=== PATIENT | male | born 1955 | race Caucasian/White ===

== ENCOUNTER 2019-01-03 12:39 | Inpatient (IN) | payer MEDICAID, OTHER ==
--- NOTE | 2019-01-03 12:45 | ED ---
HPI Chest Pain - HPI Summary HPI Summary: This pt is a 63 y/o male presenting to [facility] via EMS for chest pain and syncope today. Pt reports he was working at [employer] when he got thirsty and went to the bottle room to drink some water. He notes he sat down to drink water and the next thing he knows his boss is yelling in his face telling him he had passed out. EMS notes pt had a syncopal episode and was found by coworkers. EMS reports they were called to scene at about 12:20 and upon their arrival pt was talking and c/o chest pressure. Pt rated his chest pressure at onset 7/10 in severity. EMS denies pt with SOB or diaphoresis. EMS administered aspirin and nitroglycerin x2. Currently pt rates his chest pain 1/10. Pt notes he has cold, cough, runny nose, myalgia. Denies fever, chills, erythema of eyes , SOB, abd pain, nausea, vomiting, dysuria, hematuria, myalgia, edema, rash, or dizziness. PMHx includes triple bypass (done by Dr. Laird in [place], [place]) and 2 cardiac stents. His embedded linux developer is Dr. Gorman in [place]. Pt has not been taking his medications (which include Glipizide, aspirin, metformin) for 1 month now due to not having insurance. He had [employer] insurance in the past but will reestablish this insurance on February 06. - History of Current Complaint Time Seen by Provider: 01/03/19 12:40 Hx Obtained From: Patient, EMS Onset/Duration: Started Minutes Ago, Still Present Timing: Lasting Minutes Initial Severity: Moderate Current Severity: Mild Pain Intensity: 1 Pain Scale Used: 0-10 Numeric Chest Pain Location: Mid Sternal Chest Pain Radiates: No Character: Pressure/Squeezing - Pressure Aggravating Factor(s): Nothing Alleviating Factor(s): NTG 123 Associated Signs and Symptoms: Positive: Chest Pain, Syncope, Cough, Other: - POSITIVE: runny nose, myalgia.. Negative: Shortness of Breath, Fever, Chills, Nausea, Palpitations, Abdominal Pain, Vomiting, Edema - Allergy/Home Medications Allergies/Adverse Reactions: Allergies Allergy/AdvReac Type Severity Reaction Status Date / Time No Known Allergies Allergy Verified 01/03/19 12:45 Home Medications: Home Medications Alogliptin (NF) [Nesina (NF)] 25 mg PO DAILY 01/03/19 [History Confirmed ] Amlodipine Besylate [Amlodipine 2.5 mg tab] 2.5 mg PO DAILY 01/03/19 [History Confirmed 01/03/19] Aspirin EC TAB* [Ecotrin EC Low Dose 81 MG*] 81 mg PO DAILY 01/03/19 [History Confirmed 01/03/19] Atorvastatin* [Lipitor*] 80 mg PO DAILY 01/03/19 [History Confirmed 01/03/19] Clopidogrel TAB* [Plavix TAB*] 75 mg PO DAILY 01/03/19 [History Confirmed ] Linagliptin (NF) [Tradjenta (NF)] 5 mg PO DAILY 01/03/19 [History Confirmed ] Lisinopril TAB* [Prinivil TAB*] 5 mg PO DAILY 01/03/19 [History Confirmed ] Omeprazole (Nf) [Prilosec (NF)] 40 mg PO DAILY 01/03/19 [History Confirmed 01/03] glipiZIDE TAB* [Glucotrol TAB*] 10 mg PO DAILY 01/03/19 [History Confirmed 01/03] metFORMIN* [Glucophage 1000 MG TAB *] 1,000 mg PO BID 01/03/19 [History Confirmed 01/03/19] PMH/Surg Hx/FS Hx/Imm Hx Endocrine/Hematology History: Reports: Hx Diabetes Cardiovascular History: Reports: Hx Coronary Artery Disease, Hx Hypercholesterolemia, Hx Myocardial Infarction - Surgical History Surgical History: Yes Surgery Procedure, Year, and Place: Triple bypass. Cardiac stents - Family History Known Family History: Negative: Respiratory Disease - Social History Alcohol Use: Occasionally Substance Use Type: Reports: None Smoking Status (MU): Light Every Day Tobacco Smoker Review of Systems Negative: Fever, Chills Negative: Erythema Positive: Nasal Discharge. Negative: Sore Throat Positive: Chest Pain Positive: Cough. Negative: Shortness Of Breath Negative: Abdominal Pain, Vomiting, Nausea Negative: dysuria, hematuria Positive: Myalgia. Negative: Edema Negative: Rash Neurological: Other - NEGATIVE: dizziness Positive: Syncope All Other Systems Reviewed And Are Negative: Yes Procedures - Sedation Patient Received Moderate/Deep Sedation with Procedure: No Diagnostics - Laboratory Result Diagrams: 01/03/19 12:53 01/03/19 12:53 Lab Statement: Any lab studies that have been ordered have been reviewed, and results considered in the medical decision making process. - Radiology Chest XR Radiology Interpretation Completed By: Radiologist Summary of Radiographic Findings: IMPRESSION: No active cardiopulmonary disease is noted. Dr. Anderson has reviewed this report. - EKG 12:39 Cardiac Rate: NL - at 79 bpm EKG Rhythm: Sinus Rhythm Summary of EKG Findings: EKG at 12:39 shows normal sinus rhythm at [address] elevation in lead aVR 1mm. ST depressions in leads V4-V6. T wave inversions in V3-V6. No STEMI. 13:31 Cardiac Rate: Bradycardia - at 49 bpm EKG Rhythm: Sinus Bradycardia EKG Comparison: No Significant Change - compared to prior EKG at 12:39. Summary of EKG Findings: No STEMI. No changes. Re-Evaluation - Re-Evaluation First Eval Re-Evaluation Time: 13:57 Change: Improved Comment: Pt is chest pain free. Chest Pain Course/Dx - Course Assessment/Plan: Pt is a 63 y/o male, with hx triple bypass and cardiac stents, presenting to [facility] via EMS for chest pain and syncope today. Pt reports he was working at [employer] when he got thirsty and went to the bottle room to drink some water. He notes he sat down to drink water and the next thing he knows his boss is yelling in his face telling him he had passed out. EMS notes pt had a syncopal episode and was found by coworkers. EMS reports they were called to scene at about 12:20 and upon their arrival pt was talking and c/o chest pressure. Pt rated his chest pressure at onset 7/10 in severity. EMS denies pt with SOB or diaphoresis. EMS administered aspirin and nitroglycerin x2. Currently pt rates his chest pain 1/10. Pt notes he has cold, cough, runny nose, myalgia. EKG at 12:39 shows normal sinus rhythm at [address] elevation in lead aVR 1mm. ST depressions in leads V4-V6. T wave inversions in V3-V6. No STEMI. A second EKG shows sinus bradycardia with no changes compared to prior. Lab results are remarkable for hemoglobin of 13.4, hematocrit of 40, creatinine of 1.21, glucose of 597, lactic acid of 2.3, troponin of 0.16. Chest XR is negative. In the ED course the pt was given IV fluids, insulin. Discussed pt care with Dr. Pan, embedded linux developer, who recommends a heparin drip and admission. Discussed with Dr. Delaney, hospitalist, who accepted the pt for admission. - Diagnoses Provider Diagnoses: NSTEMI (non-ST elevated myocardial infarction), Syncope - Provider Notifications Discussed Care Of Patient With: Jewel Pan Time Discussed With Above Provider: 14:11 Instructed by Provider To: Other - Discussed pt care with Dr. Pan, embedded linux developer, who recommends a heparin drip and admission. [14:14] Discussed with Dr. Delaney, hospitalist, who accepted the pt for admission. - Critical Care Time Critical Care Time: 30-74 min - 60 minutes Discharge ED - Sign-Out/Discharge Documenting (check all that apply): Patient Departure - Admit to [facility] [place] [place] - Discharge Plan Condition: Stable Disposition: ADMITTED TO [facility] Referrals: Rita Ring NP [Primary Care Provider] - - Attestation Statements Document Initiated by Scribe: Yes Documenting Scribe: Noy William Provider For Whom Scribe is Documenting (Include Credential): Aleks Anderson MD Scribe Attestation: Noy Reed, scribed for Aleks Anderson MD on 01/03/19 at 1508. Status of Scribe Document: Ready
[2019-01-03 12:59] LABS: ABS Eosinophils 0.1 10^3/ul (0-0.6); ABS Monocytes 0.5 10^3/ul (0-0.8); ABS Neutrophils 3.9 10^3/ul (1.5-7.7); Eosinophil % 0.9 %; Hematocrit 40 % (42-52); Hemoglobin 13.4 g/dL (14.0-18.0); Lymphocyte % 18.4 %; Mean Corpuscular HGB Conc 34 g/dL (31-36); Mean Corpuscular Hemoglobin 29 pg (27-31); Mean Corpuscular Volume 85 fL (80-94); Mean Platelet Volume 8.9 fL (7.4-10.4); Platelet Count 209 10^3/uL (150-450); Red Blood Count 4.64 10^6 /uL (4.18-5.48); Red Cell Distribution Width 14 % (10-15); White Blood Count 5.4 10^3/uL (3.5-10.8)
[2019-01-03 13:46] LABS: ALT 10 U/L (7-52); AST 10 U/L (13-39); Albumin 3.6 g/dL (3.2-5.2); Albumin/Globulin Ratio 1.4 (1-3); Alkaline Phosphatase 114 U/L (34-104); Anion Gap 7 mmol/L (2-11); BUN/Creatinine Ratio 10.7 (8-20); Blood Urea Nitrogen 13 mg/dL (6-24); CO2 Carbon Dioxide 26 mmol/L (22-32); Calcium 8.6 mg/dL (8.6-10.3); Chloride 104 mmol/L (101-111); EGFR African American 73.8 (>60); Globulin 2.5 g/dL (2-4); Sodium 137 mmol/L (135-145); Total Protein 6.1 g/dL (6.4-8.9)
[2019-01-03 13:51] LABS: Glucose 597 mg/dL (70-100); Troponin I 0.16 ng/mL (<0.04)
[2019-01-03] MEDS ORDERED: Insulin REGULAR(*) 1 UNITS UNIT SUBCUT ONE (13:51)
[2019-01-03] MEDS ORDERED: NS 0.9% 1000 ML** 1,000 ML IV ONE ×2 (13:51→14:39)
[2019-01-03] MEDS ORDERED: Heparin DRIP 25,000 UNITS(*) 25,000 UNITS/500 ML BAG IV SCH (14:15)
[2019-01-03] MEDS ORDERED: Dextrose 50% VIAL 50 ml IV PUSH PRN ×3 (14:26→17:10)
[2019-01-03] MEDS: Heparin VIAL(*) 5000 UNITS/ML VIAL (FIVE THOUSAND) IV SCH (14:41)
[2019-01-03] MEDS ORDERED: Temazepam CAP* 15 MG PO PRN (14:42)
[2019-01-03] MEDS ORDERED: Al Hydrox/Mg Hydrox/Simet LIQ* 30 ML UDC PO PRN (14:42)
[2019-01-03] MEDS ORDERED: Insulin LISPRO* 1 UNITS UNIT SUBCUT SCH ×2 (15:00→20:00)
[2019-01-03] MEDS ORDERED: Perflutren Lipid Microsphere* 3 ML VIAL ONE (15:20)
[2019-01-03] MEDS ORDERED: Insulin LISPRO* 1 UNITS UNIT SUBCUT ONE (15:22)
[2019-01-03] MEDS ORDERED: Insulin GLARGINE(*) 1 UNITS UNIT SUBCUT ONE (15:22)
[2019-01-03] MEDS: NS 0.9% 1000 ML** 1,000 ML IV SCH (15:51)
--- NOTE | 2019-01-03 16:26 | ECHO ---
*[facility]* [place] [address] Fax #: [phone] Transthoracic Echocardiogram Patient: Gomez Nicole : 1955 Study Date: 01/03/2019 Age: 63 Gender: M HR: 62 bpm Height: 69 in /175.3 cm BSA: 2.15 m^2 Weight: 219.5 lb /99.8 kg BMI: 32.5 kg/m^2 *Methods And Procedures Analyst: Comfort Ballesteros [facility] *Referring Physician: * Ceci Delaney *Reading Physician: * Jewel Pan MD Indications: Myocardial Infarction (new). History: Coronary artery disease. Risk factors: Current tobacco use. Diabetes mellitus. Dyslipidemia. Labs, prior tests, procedures, and surgery: Catheterization. There was a stenosis which was treated with a stent. Coronary artery bypass grafting. Conclusions Summary: - Left ventricle: Systolic function is mildly reduced. The estimated ejection fraction is 35-40%. Hypokinesis of the apical myocardium. Hypokinesis of the mid-apicalanteroseptal myocardium. - Right ventricle: Systolic function is normal. - Mitral valve: There is trace regurgitation. - Aortic valve: There is no evidence of stenosis. There is no significant regurgitation. - Pericardium, extracardiac: There is no significant pericardial effusion. - Pulmonary arteries: Systolic pressure can not be accurately estimated. - Study data: No prior study is available for comparison. Study data: Transthoracic echocardiogram. Procedure: Transthoracic echocardiography was performed. Image quality was adequate. Intravenous Definity , 2 mlswas administered. Complete 2D, spectral Doppler, and color flow Doppler. Location: Emergency department. Patient status: Inpatient. Patient room number: 14. No prior study is available for comparison. Rhythm: Normal sinus rhythm with PAC's. Findings Left ventricle: The cavity size is mildly dilated. Wall thickness is mildly increased. Systolic function is mildly reduced. The estimated ejection fraction is 35-40%. Regional wall motion abnormalities: Hypokinesis of the apical myocardium. Hypokinesis of the mid-apicalanteroseptal myocardium. Features are consistent with a pseudonormal left ventricular filling pattern, with concomitant abnormal relaxation and increased filling pressure (grade 2 diastolic dysfunction). Right ventricle: The cavity size is normal. Systolic function is normal. Left atrium: The atrium is mildly dilated. Right atrium: The atrium is mildly dilated. Mitral valve: The leaflets are normal thickness. There is no evidence of stenosis. There is trace regurgitation. Aortic valve: The valve is trileaflet. The leaflets are mildly thickened. There is no evidence of stenosis. There is no significant regurgitation. Tricuspid valve: The leaflets are normal thickness. There is no evidence of stenosis. There is trace regurgitation. Pulmonic valve: The leaflets are normal thickness. There is no evidence of stenosis. There is trace to mild regurgitation. Aorta: Aortic root: The aortic root is upper normal in size. The aortic arch appears normal. Pericardium: There is no significant pericardial effusion. Pulmonary arteries: Not well visualized. Systolic pressure can not be accurately estimated. Systemic veins: Inferior vena cava: The vessel is dilated. There is (>= 50%) respiratory change in the IVC dimension. Measurements Left ventricle Value Ref Aortic valve continued Value Ref FABIENNE, LAX (H) 5.9 cm 4.2 - 5.8 VTI, S 32.7 cm ---- ESD, LAX (H) 4.3 cm 2.5 - 4.0 Mean grad, S 4.0 mm Hg ---- FS, LAX 27 % 25 - 43 Peak grad, S 7.0 mm Hg ---- PW, ED, LAX 1.0 cm 0.6 - 1.0 EF (L) 51 % 52 - 72 Mitral valve Value Ref E', lat jose, TDI (L) 5.5 cm/sec >=10.0 Peak E 1.1 m/sec -- -- E/e', lat jose, 20 Peak A 0.77 m/sec ---- TDI Decel time 150 ms ---- E', med jose, TDI (L) 5.6 cm/sec >=7.0 PHT 103 ms -- -- E/e', med jose, 20 Mean grad, D 1.0 mm Hg ---- TDI Peak grad, D 4.0 mm Hg ---- E', avg, TDI 5.6 cm/sec Peak E/A ratio 1.4 ---- E/e', avg, TDI (H) 20 <=14 MVA, PHT 2.1 cm^2 -- -- LVOT Value Ref Pulmonic valve Value Ref Peak jose juan, S 0.95 m/sec Peak v, S 0.51 m/sec ---- Mean grad, S 2 mm Hg Peak grad, S 1.0 mm Hg ---- Ventricular septum Value Ref Aortic root Value Ref IVS, ED (H) 1.1 cm 0.6 - 1.0 Root diam 3.5 cm <4.3 Right ventricle Value Ref Aortic arch Value Ref FABIENNE, LAX 3.6 cm Arch diam 3.1 cm ---- Left atrium Value Ref Decending aorta Value Ref AP dim, ES (H) 5.00 cm 3.00 - Bradly peak jose juan 0.65 m/sec ---- 4.00 ML dim, A4C 4.1 cm Inferior vena cava Value Ref SI dim, A4C 5.7 cm Diam 2.2 cm ---- Vol/bsa, ES, A/L (H) 36 ml/m^2 16 - 34 Pulmonary veins Value Ref Right atrium Value Ref Peak v, S 0.56 m/sec ---- SI dim, ES (H) 5.7 cm 3.4 - 5.3 Peak v, D 0.68 m/sec ---- ML dim, ES, A4C 3.7 cm 2.6 - 4.4 Peak S/D ratio 0.8 ---- Estimated RAP 8 mm Hg A rev duration 172 ms ---- Aortic valve Value Ref Jose diam, ED 2.3 cm Peak v, S 1.34 m/sec Legend: (L) and (H) litzy values outside specified reference range. Prepared and electronically signed by Jewel Pan MD 01/03/2019 16:26
[2019-01-03 16:48] LABS: Troponin I 0.65 ng/mL (<0.04)
[2019-01-03 17:07] LABS: Glucose 244 mg/dL (70-100)
--- NOTE | 2019-01-03 18:08 | CONS ---
CARDIOLOGY CONSULTATION: DATE OF CONSULT: 01/03/19 INDICATION FOR CONSULTATION: NSTEMI, coronary artery disease. HISTORY OF PRESENT ILLNESS: The patient is a 63-year-old gentleman with a history of known coronary artery disease, diabetes, hypertension, who was working at [employer] today. 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 The patient states that his boss was standing over him. It was reported to the patient at he was unresponsive for a couple of minutes. The patient states when he awoke, he did feel pressu re on his chest. He rated the pressure as 5/10. The patient denies any history of the discomfort in the recent past. The patient states when he got into the ambulance, his pressure had started to decrease and then when he arrived to the emergency room, his chest pressure had almost completely resolved. The patient cu rrently denies any chest discomfort. Past cardiac history, he had coronary bypass surgery x3 in the distant past. He also reports having 2 stents. I do not have any other documentation of that. The patient does take aspirin and Plavix on a daily basis. He does have a history of diabetes, but h as not been taking his diabetes medications of late because of financial constraints. PAST MEDICAL HISTORY: Significant for: 1. Diabetes. 2. Hypertension. 3. Coronary artery disease as described above. MEDICATIONS: Outpatient medications: 1. Glipizide XL 10 mg. 2. Metformin 1000 mg b.i.d. 3. Aspirin 81 mg a day. 4. Plavix 75 mg a day. 5. Omeprazole 40 mg a day. 6. Lisinopril 5 mg a day. 7. Amlodipine 2.5 mg a day. 8. Atorvastatin 80 mg a day. 9. Tradjenta 5 mg a day. 10. Alogliptin 25 mg a day. ALLERGIES: No known drug allergies. SOCIAL HISTORY: He is not . He denies tobacco use. He works at [employer]. FAMILY HISTORY: Positive for coronary artery disease. Father had a history of coronary artery disea se, at the age of 78. REVIEW OF SYSTEMS: Negative for fevers and chills. Negative for changes in bowel or bladder habits. Negative for change in weight. Other 12-point review is unremarkable except for his high sugars be cause of not taking diabetic medications. PHYSICAL EXAMINATION: Height is 5 feet 9 inches, weight 220 pounds. Temperature 97.6, heart rate is 66, blood pressure 131/81, respiratory rate is 18, oxygen saturation 97% on 2 L. Sclerae anicteric. Oropharynx is pink without erythema. Carotids are 2+ without bruits. JVD is normal. Thyroid is no rmal. Cardiac Exam: S1, S2 without any murmurs, rubs, or gallops. PMI is normal. Lungs are clear t o auscultation bilaterally. There is no dullness to percussion. Abdomen is soft, nontender, nondist ended with normoactive bowel sounds. Extremities show no edema. He has diminished pulses in dorsalis pedis. Normal pulses at his popliteal and femoral. The patient is awake and alert and oriented. H e moves all 4 extremities equally. LABORATORY DATA: CBC within normal limits. Chemistries within normal limits. BUN 13, creatinine 1. 2. Glucose is 600. AST and ALT are normal. Troponin level of 0.16. His EKG from 10/20/18 at his pneumatic drum sander's office showed normal sinus rhythm with nonspecific T wave abnormalities. His T waves are upright in V4, V5, and V6. His initial EKG here at [facility] shows normal sinus rhythm with deep T wave inversions in V4, V5, and V6 with [address] segment de pression. Again, the patient is currently pain-free. IMPRESSION: This is a 63-year-old gentleman with a history of known coronary artery disease who is a dmitted to the emergency room after having a syncopal episode while at work at [employer]. He also has had chest pressure. The patient does have positive troponin and positive EKG changes. Currently, the patient is pain-dariel e. At this point, my recommendation is continue medical therapy. The patient will be started on nitrogl ycerin drip and heparin drip. Aspirin and Plavix will be continued. The patient will hold on beta-b locker as he is somewhat bradycardic. The patient will likely need to undergo cardiac catheterization tomorrow, but we will see what his bl ood sugars do and see if he has any return of his chest pain. This case was discussed with Dr. Delaney. [id number]/[facility] #: [id number]
[2019-01-03 18:46] LABS: Troponin I 2.18 ng/mL (<0.04)
--- NOTE | 2019-01-03 20:43 | HP ---
CC: Dr. Pan, Cardiology; Rita Ring NP; building specialist, Dr. Gorman * HISTORY AND PHYSICAL: DATE OF ADMISSION: 01/03/19 PRIMARY CARE PROVIDER: Rita Ring NP, [place]. QUALITY SYSTEMS TECHNICIAN: Dr. Gorman, [place], [place]. CHIEF COMPLAINT: Chest pain and altered mental status. HISTORY OF PRESENT ILLNESS: Gomez Nicole is a 63-year-old male with history of coronary artery disease, diabetes, hyperlipidemia, hypertension, who was not able to take his medications for the past month due to his insurance lapsing. The patient stated that he was planning to reinstate his insurance with his new employer in February of this year, due to that he has not taken any of his medications for entire month. 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 He decided to go back inside to take a glass of water, at this point one of his coworkers noted that he was " out of source" and called his boss who looked him and as per the patient, his boss stated that for about 5 minutes he was not answering questions but standing up "in a daze." The patient himself stated that before that episode happened he felt so much short of breath but denied any chest pain. After he started talking again, he complained of belt-like chest pain localized in bilateral sides of his lower chest. The pain was mild at 4/10. He received nitroglycerin sublingually in the ambulance on the way to [facility] during which time his discomfort and shortness of breath resolved. The patient denies any recent problems with chest pain or shortness of breath apart from today. He stated that he frequently would get lightheaded. He denies frequent urination or blurry vision. On arrival, the patient was noted to have EKG changes with positive troponin and his sugars were above 500. He was seen by Dr. Pan from Cardiology. The patient currently is chest pain free. He is going to be admitted to intensive care unit with diagnosis of [id number] [place]. PAST MEDICAL HISTORY: 1. Coronary artery disease, status post coronary bypass graft in 2006 in [place], [place], status post 2 stents in [facility] in [place], the last one was in 2013 by the patient's building specialist, Dr. Gorman. 2. History of diabetes type 2. 3. Hypertension. 4. Dyslipidemia. 5. Gastroesophageal reflux disease. MEDICATIONS: Medications at home are none for the past 1 month but prior to that, the patient was on: 1. Tradjenta 5 mg daily. 2. Atorvastatin 80 mg daily. 3. Amlodipine 2.5 mg daily. 4. Lisinopril 5 mg daily. 5. Plavix 75 mg daily. 6. Metformin 1000 mg b.i.d. 7. Omeprazole 40 mg b.i.d. 8. Glipizide 10 mg daily. 9. Aspirin 81 mg daily. 10. Alogliptin 25 mg daily. ALLERGIES: No known drug allergies. SOCIAL HISTORY: The patient smokes 1 pack of cigarettes in a week. He started smoking when he was 17. He denies any drug use. He drinks alcohol rarely. He lives with his son, but his surrogate decision making person is his niece, Lisandra Mejia, with phone number of [phone]. REVIEW OF SYSTEMS: Please see history of present illness. All the remaining 12 systems were reviewed with the patient and were otherwise negative. PHYSICAL EXAMINATION GENERAL: The patient is a pleasant 63-year-old male who is in no acute distress. Alert, awake, and oriented x3. VITAL SIGNS: Blood pressure of 140/70, heart rate of 50 and regular, respiratory rate 20, oxygen saturation 99% on room air, temperature of 96.9. HEENT: Head: Atraumatic and normocephalic. Eyes: Pupils are equal and reactive to light and accommodation. Oropharynx clear. Mucosa moist. NECK: Supple. No JVD. No bruits bilaterally. RESPIRATORY: Clear to auscultation bilaterally. CARDIOVASCULAR: Regular rate and rhythm. No murmur. ABDOMEN: Soft and nontender. Bowel sounds are present in all 4 quadrants. EXTREMITIES: There is no edema. Pulses are +2 bilaterally. No clubbing or cyanosis. NEURO EVALUATION: Speech clear. Cranial nerves II through XII grossly intact. Motor strength is 5/5 bilaterally. DIAGNOSTIC STUDIES/LAB DATA: White blood cell count 5.4, hemoglobin 13.4, hematocrit 40, and platelets 209. Sodium 137, potassium 4.0, chloride 104, carbon dioxide 26, BUN 13, creatinine 1.21. Liver function test showed alkaline phosphatase of 114, AST of 10, ALT of 10. The patient's lactic acid was 2.3, glucose of 597, troponin of 0.16. Portable chest x-ray, impression: No active cardiopulmonary disease is noted. Clear on auscultation. The patient EKG showed normal sinus rhythm with a heart rate of 49 beats per minute with deep negative T-wave inversion in V2, V3, V4, V5, and V6 with ST depressions in leads V4 to V6 and the ST depression is new comparing with prior EKG obtained on the patient and T depressions are more pronounced than before. The patient also has ST elevation in lead III of [address] changes in lead II and aVF with negative T waves in the inferior leads also. ASSESSMENT AND PLAN: 1. The patient appears to have had [id number] myocardial infarction. I suspect his uncontrolled diabetes that is caused by him not able to afford his medications exacerbated his chronic heart condition. The patient is going to be restarted on aspirin and Plavix. He was already seen Dr. Pan in consultation and transthoracic echocardiogram is pending. Heparin drip is going to be instituted and the patient is going to be placed n.p.o. for the morning for likely cardiac catheterization. 2. History of dyslipidemia. His atorvastatin is going is going to be restarted and we will check lipid profile in the morning. 3. Uncontrolled diabetes. The patient is going to be placed on insulin sliding scale and insulin Lantus. We will check hemoglobin A1c. His uncontrolled diabetes is now due to medical noncompliance. 4. For DVT prophylaxis, the patient is going to be placed on heparin drip. 5. The patient's code status is full. His surrogate is his niece, Lisandra. TIME SPENT: Approximately 65 minutes was spent on admission of this patient, more than half the time was spent [id number] with the patient during the interview and physical exam. [id number]/[facility] #: [id number] PATRICK
[2019-01-03] MEDS: Insulin LISPRO* 1 UNITS UNIT SUBCUT SCH (20:48)
[2019-01-03] MEDS: Docusate CAP* 100 MG PO SCH (20:48)
[2019-01-04] MEDS: NS 0.9% 1000 ML** 1,000 ML IV SCH (02:05)
[2019-01-04] MEDS: Heparin VIAL(*) 5000 UNITS/ML VIAL (FIVE THOUSAND) IV SCH (02:51)
[2019-01-04 05:57] LABS: ABS Basophils 0.1 10^3/ul (0-0.2); ABS Eosinophils 0.1 10^3/ul (0-0.6); ABS Lymphocytes 2.5 10^3/ul (1.0-4.8); ABS Monocytes 0.6 10^3/ul (0-0.8); ABS Neutrophils 5.5 10^3/ul (1.5-7.7); Eosinophil % 0.9 %; Hematocrit 39 % (42-52); Hemoglobin 12.8 g/dL (14.0-18.0); Lymphocyte % 28.5 %; Mean Corpuscular HGB Conc 33 g/dL (31-36); Mean Corpuscular Hemoglobin 28 pg (27-31); Mean Corpuscular Volume 85 fL (80-94); Mean Platelet Volume 9.2 fL (7.4-10.4); Nucleated Red Blood Cells % 0.1; Platelet Count 171 10^3/uL (150-450); Red Blood Count 4.56 10^6 /uL (4.18-5.48); Red Cell Distribution Width 14 % (10-15); White Blood Count 8.7 10^3/uL (3.5-10.8)
[2019-01-04 06:12] LABS: BUN/Creatinine Ratio 10.3 (8-20); Blood Urea Nitrogen 10 mg/dL (6-24); CO2 Carbon Dioxide 24 mmol/L (22-32); Calcium 7.9 mg/dL (8.6-10.3); Cholesterol 129 mg/dL; EGFR African American 95.2 (>60); EGFR Non-African American 78.7 (>60); Glucose 138 mg/dL (70-100); HDL Cholesterol 24.1 mg/dL; LDL Cholesterol 69 mg/dL; Sodium 141 mmol/L (135-145); Triglycerides 179 mg/dL
[2019-01-04 06:16] LABS: Anion Gap 5 mmol/L (2-11); Chloride 112 mmol/L (101-111); Troponin I 4.25 ng/mL (<0.04)
--- NOTE | 2019-01-04 07:22 | PN ---
Subjective Date of Service: 01/04/19 Interval History: EKG this morning shows persistent deep t-wave inversions across the precordium as well as shallow t-wave inversions II, III, avf. He feels fine this morning. He had an uneventful night. No tele events. No recurrent chest pain or shortness of breath. Objective Active Medications: Al Hydrox/Mg Hydrox/Simethicone (Maalox Plus*) 30 ml PO Q6H PRN PRN Reason: INDIGESTION Aspirin (Aspirin Ec Tab*) 81 mg PO DAILY [facility] Atorvastatin Calcium (Lipitor*) 80 mg PO DAILY [facility] Clopidogrel Bisulfate (Plavix Tab*) 75 mg PO DAILY [facility] Dextrose (Dextrose 50% Vial 50 Ml*) 25 ml IV PUSH .FOR FS < 60 - SS PRN PRN Reason: FS < 60 Docusate Sodium (Colace Cap*) 100 mg PO BID [facility] Last Admin: 01/03/19 20:48 Dose: 100 mg Heparin Sodium (Porcine) (Heparin Vial(*)) 0 units IV .PER PROTOCOL [facility] Last Admin: 01/04/19 02:51 Dose: 2,000 units Heparin Sodium/Dextrose (Heparin Drip 25,000 Units(*)) 25,000 units in 500 mls @ 0 mls/hr IV PER RATE [facility]; Protocol Last Admin: 01/03/19 14:41 Dose: 20 mls/hr Sodium Chloride (Ns 0.9% 1000 Ml) 1,000 mls @ 100 mls/hr IV PER RATE [facility] Last Admin: 01/04/19 02:05 Dose: 100 mls/hr Influenza Virus Vaccine (Fluarix Quad [id number] Syr) 0.5 ml IM .ONCE ONE Stop: 01/04/19 09:01 Insulin Human Lispro (Humalog*) 0 units SUBCUT ACHS [facility]; Protocol Last Admin: 01/03/19 20:48 Dose: Not Given Lisinopril (Prinivil Tab*) 5 mg PO DAILY [facility] Pantoprazole Sodium (Protonix Tab*) 40 mg PO DAILY [facility] Temazepam (Restoril Cap*) 15 mg PO BEDTIME PRN PRN Reason: INSOMNIA Vital Signs - 8 hr 01/04/19 01/04/19 01/04/19 00:00 00:30 01:00 Temperature 96.8 F Pulse Rate 54 50 Respiratory 16 15 16 Rate Blood Pressure 132/64 (mmHg) O2 Sat by Pulse 97 95 Oximetry 01/04/19 01/04/19 01/04/19 01:01 02:00 03:00 Temperature Pulse Rate 53 49 Respiratory 16 22 20 Rate Blood Pressure 116/60 131/51 (mmHg) O2 Sat by Pulse 96 95 Oximetry 01/04/19 01/04/19 01/04/19 03:01 04:00 04:23 Temperature 99.2 F Pulse Rate 49 48 51 Respiratory 20 7 18 Rate Blood Pressure 116/50 106/56 (mmHg) O2 Sat by Pulse 95 94 96 Oximetry 01/04/19 01/04/19 01/04/19 05:00 05:01 06:00 Temperature Pulse Rate 54 Respiratory 19 15 13 Rate Blood Pressure 118/42 (mmHg) O2 Sat by Pulse 93 Oximetry 01/04/19 06:01 Temperature Pulse Rate 53 Respiratory 20 Rate Blood Pressure 126/61 (mmHg) O2 Sat by Pulse 91 Oximetry Oxygen Devices in Use Now: None Appearance: alert, resting comfortably in bed Eyes: No Scleral Icterus Ears/Nose/Mouth/Throat: NL Teeth, Lips, Gums Neck: NL Appearance and Movements; NL JVP Respiratory: Symmetrical Chest Expansion and Respiratory Effort Cardiovascular: NL Sounds; No Murmurs; No JVD, RRR Abdominal: NL Sounds; No Tenderness; No Distention Lymphatic: No Cervical Adenopathy Extremities: No Edema, - - hyperpigmented skin changes on shins and ankles Neurological: Alert and Oriented x 3 Result Diagrams: 01/04/19 05:40 01/04/19 05:40 Microbiology and Other Data: Microbiology 01/03/19 16:00 Nasal Screen MRSA (PCR) - Final Nasal Mrsa Not Detected Assess/Plan/Problems-Billing Assessment: 63 year old man with history of DM, HTN, and CAD who ran out of medications one month ago due to insurance lapse, presented on 01/03/19 with shortness of breath , chest pain, and his coworkers noted he was "out of source" and was found to have an NSTEMI. There was some question of syncope but he reports that he had been sitting and his boss was snapping in his face and he was not responding. - Patient Problems (1) NSTEMI (non-ST elevated myocardial infarction) Current Visit: Yes Status: Acute Code(s): I21.4 - NON-ST ELEVATION (NSTEMI) MYOCARDIAL INFARCTION SNOMED Code(s): 98750812 Comment: troponin still uptrending chest pain- free on heparin drip, asa/plavix, statin--no beta sebastián due to bradycardia plan for [facility] today (2) Acute systolic heart failure Current Visit: Yes Status: Acute Code(s): I50.21 - ACUTE SYSTOLIC ( CONGESTIVE) HEART FAILURE SNOMED Code(s): 968921053 Comment: with regional wall motion abnormalities like ischemic and related to acute event yesterday--he does not report recent change in exercise tolerance, weight, etc. continue melisa; would benefit from a beta sebastián but limited by bradycardia (3) Diabetes mellitus Current Visit: Yes Status: Acute Code(s): E11.9 - TYPE 2 DIABETES MELLITUS WITHOUT COMPLICATIONS SNOMED Code(s): 81012510 Comment: he had run out of medications a month ago and presented with bg > 500 yesterday add on a1c today currently only on sliding scale with fasting sugar at goal this morning, though I suspect may need some basal insulin; will follow today Status and Disposition: ICU level of care is appropriate at this time
[2019-01-04] MEDS ORDERED: diPHENhydraMINE PO* 25 MG PO PRN (08:23)
[2019-01-04] MEDS ORDERED: Diazepam TAB(*) 5 MG PO PRN (08:23)
[2019-01-04 08:28] LABS: Glucose 157 mg/dL (70-100); Potassium 3.8 mmol/L (3.5-5.0)
[2019-01-04 08:36] LABS: Troponin I 4.44 ng/mL (<0.04)
[2019-01-04] MEDS ORDERED: Influenza VAC *QUAD* 2019-20* 0.5 ML SYRINGE IM ONE (09:00)
[2019-01-04] MEDS: Insulin LISPRO* 1 UNITS UNIT SUBCUT SCH ×4 (09:04→21:00)
[2019-01-04] MEDS: Pantoprazole TAB * 40 MG TAB PO SCH (09:05)
[2019-01-04] MEDS: Lisinopril TAB* 5 MG PO SCH (09:05)
[2019-01-04] MEDS: Clopidogrel TAB* 75 MG PO SCH (09:05)
[2019-01-04] MEDS: Docusate CAP* 100 MG PO SCH ×2 (09:05→21:00)
[2019-01-04] MEDS: Aspirin EC TAB* 81 MG TAB.EC PO SCH (09:05)
[2019-01-04] MEDS: Atorvastatin* 80 MG TAB PO SCH (09:05)
[2019-01-04] MEDS ORDERED: Heparin 2 UNITS/ML IVPREMIX* 2,000 ML IV ONE (09:07)
[2019-01-04] MEDS ORDERED: Iohexol 350 (CONTRAST) 200 ML MDV IV ONE (09:07)
[2019-01-04] MEDS ORDERED: Lidocaine 1% INJ* 10 MG/ML 30 ML SDV ONE (09:07)
[2019-01-04] MEDS ORDERED: fentaNYL* 50 MCG/ML 2 ML VIAL (100 MCG VIAL) ONE (09:10)
[2019-01-04] MEDS ORDERED: Midazolam* 1 MG/ML 5 ML VIAL (5 MG) ONE (09:10)
[2019-01-04] MEDS ORDERED: Adenosine* 3 MG/ML VIAL ONE (10:07)
[2019-01-04] MEDS ORDERED: nitroGLYCERIN DRIP* 25,000 MCG/250 ML BTL ONE (10:12)
[2019-01-04] MEDS ORDERED: Heparin(*) 1000 UNIT/ML 10 ML VIAL CATH LAB IV ONE (10:13)
[2019-01-04] MEDS ORDERED: Clopidogrel TAB* 300 MG ONE (10:35)
[2019-01-04] MEDS ORDERED: Nitroglycerin TAB 0.4 MG* 0.4 MG TAB SL PRN (11:27)
[2019-01-04] MEDS ORDERED: NS 0.9% 1000 ML** 1,000 ML IV SCH (11:30)
[2019-01-04 12:22] LABS: Potassium Redraw 4.1 mmol/L (3.5-5.0)
[2019-01-04 13:20] LABS: Glucose 142 mg/dL (70-100)
[2019-01-04 13:27] LABS: Troponin I 3.93 ng/mL (<0.04)
[2019-01-04 17:43] LABS: Troponin I 3.05 ng/mL (<0.04)
--- NOTE | 2019-01-04 23:34 | CATH ---
CC: Dr. Gorman; Rita Ring NP; Dr. Pan * STENT REPORT: DATE OF PROCEDURE: 01/04/19 - ROOM #ICU-04 PRIMARY CARE PROVIDER: Rita Ring NP, [place] INSTALL AND REPAIR TECHNICIAN: Dr. Gorman in [place] PROCEDURES PERFORMED: DFR-guided stent placement circumflex. HISTORY: A 63-year-old male with prior bypass grafting, previously documented occluded GARDNER and two vein grafts presenting with non-ST elevation infarct. Diagnostic cath by Dr. Pan demonstrated a probable culprit proximal circumflex stenosis, I was asked to evaluate with DFR and intervene if appropriate. was performed DESCRIPTION OF PROCEDURE: The right femoral sheath placed by Dr. Pan was utilized for access. Interventional medications Plavix 300 mg reload dose, IV Versed, IV fentanyl, heparin total 8000 units. DFR and FFR were performed through the 6FL4 diagnostic catheter. Resting DFR was 0.67, resting FFR was 0.75. After stent deployment and high pressure post dilatation, resting FFR was 0.93, DFR 0.89. Right common femoral artery was AngioSealed. For the the diagnostic portion, see Dr. Pan's report. Right common femoral artery sheath entries in segment 2, there is no stenosis. The circumflex is large, not dominant with a moderate ramus, the proximal circumflex has an irregular eccentric 80% stenosis. The circumflex supplies a large posterolateral without distal disease. After stent placement, high pressure post dilatation was performed using a 3.5 x 24 Synergy drug-eluting stent, postdilated with a 3.5 mm balloon in an overlapping fashion to 20 atmospheres, 35 seconds in the distal part of the stent, 24 atmospheres 35 seconds in the proximal part of the stent. ANGIOGRAPHY: Post stent deployment, and high pressure post dilatation, there is good stent expansion, no significant residual stenosis, normal antegrade flow. CONCLUSION: 1. Successful circumflex stent placement with DFR guidance as well as resting FFR. 2. Successful AngioSeal right common femoral artery. [id number]/[facility] #: [id number] [facility]
[2019-01-05 03:11] LABS: Troponin I 2.68 ng/mL (<0.04)
--- NOTE | 2019-01-05 03:23 | CATH ---
CARDIAC CATHETERIZATION: DATE OF PROCEDURE: 01/04/19 PROCEDURE: Cardiac catheterization including coronary angiography, saphenous vein graft angiography. INDICATION: Coronary artery disease, non-STEMI. The patient is a 63-year-old gentleman with extensive cardiac history. The patient has a history of coronary artery bypass surgery x3 at [facility] in [facility] many years ago. The patient has been followed for his ischemic cardiomyopathy. The patient had a cardiac catheterization in 2014, which demonstrated that all grafts had been occluded. His GARDNER to his LAD was occluded. Saphenous vein graft to the right was occluded. Saphenous vein graft to the circumflex was occluded. The patient's LAD was occluded. His right coronary artery was occluded. His circumflex was the only viable vessel. The patient was admitted to the hospital with syncopal episode and elevated troponin. Cardiac catheterization was recommended. DESCRIPTION OF PROCEDURE: The patient was brought to the procedure room in a fasting state. Informed consent had been obtained prior to the procedure, all labs were reviewed. The patient was placed supine on the procedure table. His femoral areas were clean and draped in the usual fashion and 1% lidocaine was used for local anesthesia. The right femoral artery was entered by modified Seldinger technique and a guidewire was placed. Over the guidewire, a 6-Dutch sheath introducer was placed. The patient underwent coronary angiography using 6-Dutch JL4 catheter and 6-Dutch AR1 catheter. At the end of the procedure, the patient went on with stenting to his left circumflex artery. Please see Dr. Moseley' report for those details. A total of 2 minutes of fluoro time was used. A total of 75 cc of Omnipaque dye was used. FINDINGS: 1. Left main artery: The left main was normal in size. It bifurcated into the LAD and circumflex. There was no evidence of stenosis. 2. Left anterior descending artery: The LAD was normal in size at its origin. It gave off septal avionics integration engineer. It gave off one diagonal vessel and was occluded. After the first diagonal vessel, there was a 60% stenosis just proximal to the first septal avionics integration engineer. 3. Left circumflex artery: The left circumflex artery was normal in size. It gave off very high obtuse marginal branch after that and had 80% stenosis to the mid vessel of left circumflex artery. The circumflex artery continued to a large obtuse marginal branch. It gave off collateral flows to the distal LAD and distal right coronary artery. The remainder of the left circumflex after the 80% stenosis had minimal disease. 4. Right coronary artery: Right coronary artery was occluded at its proximal portion. There was extensive collaterals from right to the distal right coronary artery and to the PDA. IMPRESSION: 1. Severe 3-vessel coronary artery disease. 2. Saphenous vein grafts and GARDNER grafts were occluded at the last cardiac catheterization in 2014 and were not injected. 3. An 80% stenosis to the mid left circumflex artery. RECOMMENDATION: The patient will be evaluated for stenting of his left circumflex artery. [id number]/[facility] #: [id number] PATRICK
[2019-01-05 05:34] LABS: ABS Eosinophils 0.1 10^3/ul (0-0.6); ABS Lymphocytes 1.6 10^3/ul (1.0-4.8); ABS Monocytes 0.6 10^3/ul (0-0.8); ABS Neutrophils 4.3 10^3/ul (1.5-7.7); Eosinophil % 1.3 %; Hematocrit 37 % (42-52); Hemoglobin 12.6 g/dL (14.0-18.0); Lymphocyte % 24.5 %; Mean Corpuscular HGB Conc 34 g/dL (31-36); Mean Corpuscular Hemoglobin 28 pg (27-31); Mean Corpuscular Volume 84 fL (80-94); Platelet Count 180 10^3/uL (150-450); Red Blood Count 4.43 10^6 /uL (4.18-5.48); Red Cell Distribution Width 14 % (10-15); White Blood Count 6.6 10^3/uL (3.5-10.8)
[2019-01-05 05:50] LABS: BUN/Creatinine Ratio 8.9 (8-20); Calcium 8.5 mg/dL (8.6-10.3); EGFR African American 90.9 (>60); EGFR Non-African American 75.1 (>60); Potassium 3.7 mmol/L (3.5-5.0)
[2019-01-05] MEDS: Atorvastatin* 80 MG TAB PO SCH (09:27)
[2019-01-05] MEDS: Pantoprazole TAB * 40 MG TAB PO SCH (09:27)
[2019-01-05] MEDS: Docusate CAP* 100 MG PO SCH ×2 (09:27→21:21)
[2019-01-05] MEDS: Clopidogrel TAB* 75 MG PO SCH (09:27)
[2019-01-05] MEDS: Aspirin EC TAB* 81 MG TAB.EC PO SCH (09:27)
[2019-01-05] MEDS: Lisinopril TAB* 5 MG PO SCH (09:27)
[2019-01-05] MEDS: Insulin LISPRO* 1 UNITS UNIT SUBCUT SCH ×4 (09:28→21:21)
--- NOTE | 2019-01-05 09:47 | PN ---
Subjective Date of Service: 01/05/19 - CC: s/p cath and stent to cx for syncope Interval History: The patient denies CP, dizziness, recurrent syncope. Has only walked in the room. No pain at cath site (leg). Medications Active Medications: Al Hydrox/Mg Hydrox/Simethicone (Maalox Plus*) 30 ml PO Q6H PRN PRN Reason: INDIGESTION Aspirin (Aspirin Ec Tab*) 81 mg PO DAILY [facility] Last Admin: 01/05/19 09:27 Dose: 81 mg Atorvastatin Calcium (Lipitor*) 80 mg PO DAILY [facility] Last Admin: 01/05/19 09:27 Dose: 80 mg Clopidogrel Bisulfate (Plavix Tab*) 75 mg PO DAILY [facility] Last Admin: 01/05/19 09:27 Dose: 75 mg Dextrose (Dextrose 50% Vial 50 Ml*) 25 ml IV PUSH .FOR FS < 60 - SS PRN PRN Reason: FS < 60 Docusate Sodium (Colace Cap*) 100 mg PO BID [facility] Last Admin: 01/05/19 09:27 Dose: Not Given Insulin Human Lispro (Humalog*) 0 units SUBCUT [facility]; Protocol Last Admin: 01/05/19 09:28 Dose: 2 units Lisinopril (Prinivil Tab*) 5 mg PO DAILY [facility] Last Admin: 01/05/19 09:27 Dose: 5 mg Nitroglycerin (Nitroglycerin Tab 0.4 Mg*) 0.4 mg SL Q5M PRN PRN Reason: ANGINA Pantoprazole Sodium (Protonix Tab*) 40 mg PO DAILY [facility] Last Admin: 01/05/19 09:27 Dose: 40 mg Temazepam (Restoril Cap*) 15 mg PO BEDTIME PRN PRN Reason: INSOMNIA Objective Vital Signs: Temp Pulse Resp BP Pulse Ox 98.7 F 46 17 141/66 95 01/05/19 07:17 01/05/19 08:00 01/05/19 08:00 01/05/19 08:00 01/05/19 08:00 Oxygen Devices in Use Now: None Appearance: Stocky, overweight gentleman in NAD, seated. Eyes: No Scleral Icterus, PERRLA Ears/Nose/Mouth/Throat: Clear Oropharnyx Neck: NL Appearance and Movements; NL JVP Respiratory: Symmetrical Chest Expansion and Respiratory Effort Cardiovascular: NL Sounds; No Murmurs; No JVD, RRR Abdominal: NL Sounds; No Tenderness; No Distention - Rotund Extremities: No Edema - groin, R no ecchymosis, no hematoma, mildly tender. Palpable distal PT pulse. Laboratory Results: 01/05/19 05:20 01/05/19 05:20 APTT 46.3 seconds (26.0-38.0) H 01/04/19 02:14 Total Bilirubin 0.30 mg/dL (0.2-1.0) 01/03/19 12:53 AST 10 U/L (13-39) L 01/03/19 12:53 ALT 10 U/L (7-52) 01/03/19 12:53 Alkaline Phosphatase 114 U/L (34-104) H 01/03/19 12:53 Total Protein 6.1 g/dL (6.4-8.9) L 01/03/19 12:53 Albumin 3.6 g/dL (3.2-5.2) 01/03/19 12:53 Globulin 2.5 g/dL (2-4) 01/03/19 12:53 Albumin/Globulin Ratio 1.4 (1-3) 01/03/19 12:53 Triglycerides 164 mg/dL 01/05/19 05:20 Cholesterol 125 mg/dL 01/05/19 05:20 LDL Cholesterol 68 mg/dL 01/05/19 05:20 HDL Cholesterol 24.0 mg/dL 01/05/19 05:20 01/03/19 01/03/19 01/03/19 12:53 16:00 18:15 Troponin I 0.16 H* 0.65 H* 2.18 H* 01/04/19 01/04/19 01/04/19 05:40 08:02 11:52 Troponin I 4.25 H* 4.44 H* 3.93 H* 01/04/19 01/05/19 17:00 02:30 Troponin I 3.05 H* 2.68 H* Diagnostic Imaging: Cardiac Catheterization Report Patient: GOMEZ NICOLE /Age: 11 1955 63 Medical Record#: [id number] Admission Date: 01/03/19 Provider: Jewel Pan MD CARDIAC CATHETERIZATION: DATE OF PROCEDURE: 01/04/19 PROCEDURE: Cardiac catheterization including coronary angiography, saphenous vein graft angiography. INDICATION: Coronary artery disease, non-STEMI. The patient is a 63-year-old gentleman with extensive cardiac history. The patient has a history of coronary artery bypass surgery x3 at [facility] in [facility] many years ago. The patient has been followed for his ischemic cardiomyopathy. The patient had a cardiac catheterization in 2014, which demonstrated that all grafts had been occluded. His GARDNER to his LAD was occluded. Saphenous vein graft to the right was occluded. Saphenous vein graft to the circumflex was occluded. The patient's LAD was occluded. His right coronary artery was occluded. His circumflex was the only viable vessel. The patient was admitted to the hospital with syncopal episode and elevated troponin. Cardiac catheterization was recommended. DESCRIPTION OF PROCEDURE: The patient was brought to the procedure room in a fasting state. Informed consent had been obtained prior to the procedure, all labs were reviewed. The patient was placed supine on the procedure table. His femoral areas were clean and draped in the usual fashion and 1% lidocaine was used for local anesthesia. The right femoral artery was entered by modified Seldinger technique and a guidewire was placed. Over the guidewire, a 6-Palestinian sheath introducer was placed. The patient underwent coronary angiography using 6- Palestinian JL4 catheter and 6-Palestinian AR1 catheter. At the end of the procedure, the patient went on with stenting to his left circumflex artery. Please see Dr. Moseley' report for those details. A total of 2 minutes of fluoro time was used. A total of 75 cc of Omnipaque dye was used. FINDINGS: 1. Left main artery: The left main was normal in size. It bifurcated into the LAD and circumflex. There was no evidence of stenosis. 2. Left anterior descending artery: The LAD was normal in size at its origin. It gave off septal glue machine operator. It gave off one diagonal vessel and was occluded. After the first diagonal vessel, there was a 60% stenosis just proximal to the first septal glue machine operator. 3. Left circumflex artery: The left circumflex artery was normal in size. It gave off very high obtuse marginal branch after that and had 80% stenosis to the mid vessel of left circumflex artery. The circumflex artery continued to a large obtuse marginal branch. It gave off collateral flows to the distal LAD and distal right coronary artery. The remainder of the left circumflex after the 80% stenosis had minimal disease. 4. Right coronary artery: Right coronary artery was occluded at its proximal portion. There was extensive collaterals from right to the distal right coronary artery and to the PDA. IMPRESSION: 1. Severe 3-vessel coronary artery disease. *[facility]* [place] [address] Fax #: [phone] Transthoracic Echocardiogram Patient: Gomez Nicole : 1955 Study Date: 01/03/2019 Indications: Myocardial Infarction (new). History: Coronary artery disease. Risk factors: Current tobacco use. Diabetes mellitus. Dyslipidemia. Labs, prior tests, procedures, and surgery: Catheterization. There was a stenosis which was treated with a stent. Coronary artery bypass grafting. Conclusions Summary: - Left ventricle: Systolic function is mildly reduced. The estimated ejection fraction is 35-40%. Hypokinesis of the apical myocardium. Hypokinesis of the mid-apicalanteroseptal myocardium. - Right ventricle: Systolic function is normal. - Mitral valve: There is trace regurgitation. - Aortic valve: There is no evidence of stenosis. There is no significant regurgitation. - Pericardium, extracardiac: There is no significant pericardial effusion. - Pulmonary arteries: Systolic pressure can not be accurately This report is only to be considered final once signed by the Provider(s) as displayed in the "<Electronically Signed by >" field (s). Absence of a signature indicates the report is in a draft status and still needs to be finalized. In the event this document was created by someone other than the signing Provider, the individual initiating the document will be listed in the "Entered by:" or "Dictated by:" narvaez. Assessment/Plan 63 yo with CABG, occluded grafts who presented with syncope, NSTEMI, is now 1 day s/p stent to Cx, moderate ischemic CM. CAD: Post stent. Still high risk due to graft occlusions, [place] CAD. On Plavix and risk factor modification. HTN: Would increase lisinopril for BP and CM LIPIDS: LDL controlled, TG's elevated. Recommend document imaging manager discuss diet optimization, if needed optimize diet here for weight, TG's, glucose. CM: Moderate decrease in EF, on ACEI, bradycardia precludes use of Toprol or Coreg now. Future: might benefit from aldactone, but I would optimize ACEI for now. Syncope: Could be from ischemia, bradycardia, tachyarrhythmias. Continue to monitor on Tele. Consider outpatient EM through Dr Gorman at [facility] (usual lead fabricator). Will have patient start walking on floor/room. Addendum: pt walked around ICU, no c/o. OK to move to floor.
--- NOTE | 2019-01-05 17:06 | PN ---
Subjective Date of Service: 01/05/19 Interval History: I saw Mr. Nicole this morning and he felt well. He had no recurrence of pain, no bleeding, has had a good appetite. No questions. Objective Active Medications: Al Hydrox/Mg Hydrox/Simethicone (Maalox Plus*) 30 ml PO Q6H PRN PRN Reason: INDIGESTION Aspirin (Aspirin Ec Tab*) 81 mg PO DAILY [facility] Last Admin: 01/05/19 09:27 Dose: 81 mg Atorvastatin Calcium (Lipitor*) 80 mg PO DAILY [facility] Last Admin: 01/05/19 09:27 Dose: 80 mg Clopidogrel Bisulfate (Plavix Tab*) 75 mg PO DAILY [facility] Last Admin: 01/05/19 09:27 Dose: 75 mg Dextrose (Dextrose 50% Vial 50 Ml*) 25 ml IV PUSH .FOR FS < 60 - SS PRN PRN Reason: FS < 60 Docusate Sodium (Colace Cap*) 100 mg PO BID [facility] Last Admin: 01/05/19 09:27 Dose: Not Given Insulin Human Lispro (Humalog*) 0 units SUBCUT [facility]; Protocol Last Admin: 01/05/19 12:56 Dose: 4 units Lisinopril (Prinivil Tab*) 5 mg PO DAILY [facility] Last Admin: 01/05/19 09:27 Dose: 5 mg Nitroglycerin (Nitroglycerin Tab 0.4 Mg*) 0.4 mg SL Q5M PRN PRN Reason: ANGINA Pantoprazole Sodium (Protonix Tab*) 40 mg PO DAILY [facility] Last Admin: 01/05/19 09:27 Dose: 40 mg Temazepam (Restoril Cap*) 15 mg PO BEDTIME PRN PRN Reason: INSOMNIA Vital Signs - 8 hr 01/05/19 01/05/19 01/05/19 10:00 10:20 11:00 Temperature Pulse Rate 52 54 55 Respiratory 15 16 18 Rate Blood Pressure 131/63 (mmHg) O2 Sat by Pulse 96 95 98 Oximetry 01/05/19 01/05/19 01/05/19 11:07 12:00 13:00 Temperature 96.5 F Pulse Rate 46 46 Respiratory 19 13 Rate Blood Pressure (mmHg) O2 Sat by Pulse 95 97 Oximetry 01/05/19 01/05/19 01/05/19 13:08 14:00 15:00 Temperature Pulse Rate 42 46 48 Respiratory 15 17 17 Rate Blood Pressure 130/59 124/59 116/45 (mmHg) O2 Sat by Pulse 97 95 93 Oximetry 01/05/19 15:40 Temperature 99.3 F Pulse Rate Respiratory Rate Blood Pressure (mmHg) O2 Sat by Pulse Oximetry Oxygen Devices in Use Now: None Appearance: alert, well appearing Eyes: No Scleral Icterus Ears/Nose/Mouth/Throat: - - edentulous Neck: NL Appearance and Movements; NL JVP Respiratory: Symmetrical Chest Expansion and Respiratory Effort, Clear to Auscultation Cardiovascular: NL Sounds; No Murmurs; No JVD, RRR Abdominal: NL Sounds; No Tenderness; No Distention Lymphatic: No Cervical Adenopathy Extremities: - - R groin site is clean and dry, no hematoma, distal pulses 2+ Skin: No Rash or Ulcers Neurological: Alert and Oriented x 3 Result Diagrams: 01/05/19 05:20 01/05/19 05:20 Microbiology and Other Data: Microbiology 01/03/19 16:00 Nasal Screen MRSA (PCR) - Final Nasal Mrsa Not Detected Assess/Plan/Problems-Billing Assessment: 63 year old man with history of DM, HTN, and CAD who ran out of medications one month ago due to insurance lapse, presented on 01/03/19 with shortness of breath , chest pain, and his coworkers noted he was "out of sorts" and was found to have an NSTEMI. There was some question of syncope but he reports that he had been sitting and his boss was snapping in his face and he was not responding. - Patient Problems (1) NSTEMI (non-ST elevated myocardial infarction) Current Visit: Yes Status: Acute Code(s): I21.4 - NON-ST ELEVATION (NSTEMI) MYOCARDIAL INFARCTION SNOMED Code(s): 79225108 Comment: s/p LHC with stent to LCx continue ASA/plavix no bb due to bradycardia continue lisinopril (2) Acute systolic heart failure Current Visit: Yes Status: Acute Code(s): I50.21 - ACUTE SYSTOLIC ( CONGESTIVE) HEART FAILURE SNOMED Code(s): 484058265 Comment: with regional wall motion abnormalities like ischemic and related to acute event--he does not report recent change in exercise tolerance, weight, etc. continue melisa; would benefit from a beta sebastián but limited by bradycardia (3) Diabetes mellitus Current Visit: Yes Status: Acute Code(s): E11.9 - TYPE 2 DIABETES MELLITUS WITHOUT COMPLICATIONS SNOMED Code(s): 89419401 Comment: he had run out of medications a month ago and presented with bg > 500 yesterday a1c 9.0 currently only on sliding scale with fasting sugar at goal this morning, though I suspect may need some basal insulin; will follow Status and Disposition: transfer to floor today
--- NOTE | 2019-01-06 07:35 | PN ---
Hospitalist Progress Note Date of Service: 01/06/19 I saw and examined Mr. Nicole today. He is feeling great. He has been walking around without difficulty. Has no chest pain, palpitations, lightheadedness, shortness of breath, dyspnea on exertion, or orthopnea. Vitals have been stable , remains bradycardic. Groin site is clean without hematoma. We discussed the plan for discharge today. He cannot get a ride until 5pm. He will follow up with his electromedical service engineer in [place] (Dr. Gorman) and his PCP (Ms. Ring). I am sending his meds to his pharmacy and SW has verified his prescription coverage. He will need a repeat TTE with his electromedical service engineer. Full dictation/discharge summary to follow.
[2019-01-06 07:47] LABS: ABS Eosinophils 0.1 10^3/ul (0-0.6); ABS Lymphocytes 1.3 10^3/ul (1.0-4.8); ABS Monocytes 0.5 10^3/ul (0-0.8); ABS Neutrophils 3.1 10^3/ul (1.5-7.7); Eosinophil % 1.3 %; Hematocrit 37 % (42-52); Hemoglobin 12.5 g/dL (14.0-18.0); Lymphocyte % 26.2 %; Mean Corpuscular HGB Conc 34 g/dL (31-36); Mean Corpuscular Hemoglobin 29 pg (27-31); Mean Corpuscular Volume 84 fL (80-94); Mean Platelet Volume 9.3 fL (7.4-10.4); Nucleated Red Blood Cells % 0.2; Platelet Count 170 10^3/uL (150-450); Red Blood Count 4.38 10^6 /uL (4.18-5.48); Red Cell Distribution Width 14 % (10-15); White Blood Count 5.1 10^3/uL (3.5-10.8)
[2019-01-06] MEDS: Clopidogrel TAB* 75 MG PO SCH (10:26)
[2019-01-06] MEDS: Aspirin EC TAB* 81 MG TAB.EC PO SCH (10:26)
[2019-01-06] MEDS: Atorvastatin* 80 MG TAB PO SCH (10:26)
[2019-01-06] MEDS: Docusate CAP* 100 MG PO SCH (10:26)
[2019-01-06] MEDS: Lisinopril TAB* 5 MG PO SCH (10:26)
[2019-01-06] MEDS: Pantoprazole TAB * 40 MG TAB PO SCH (10:26)
[2019-01-06] MEDS: Insulin LISPRO* 1 UNITS UNIT SUBCUT SCH ×2 (10:26→12:44)
--- NOTE | 2019-01-06 14:18 | DS ---
ADDENDUM NOW INCLUDED ON THIS REPORT CC: Rita Ring NP; Dr. Gorman, Cardiology, [place], [place] * DISCHARGE SUMMARY: DATE OF ADMISSION: 01/03/19 DATE OF DISCHARGE: 01/06/19 PRINCIPAL DISCHARGE DIAGNOSES: 1. Non-ST elevation myocardial infarction. 2. Acute systolic heart failure. SECONDARY DISCHARGE DIAGNOSES: 1. Coronary artery disease, status post coronary artery bypass grafting. 2. Type 2 diabetes. 3. Hypertension. 4. Tobacco use. 5. Sinus bradycardia. MEDICATIONS AT DISCHARGE: 1. Metformin 1000 mg b.i.d. 2. Lisinopril 5 mg daily. 3. Glipizide 10 mg daily. 4. Clopidogrel 75 mg daily. 5. Atorvastatin 80 mg daily. 6. Aspirin 81 mg daily. 7. Linagliptin 5 mg daily. PHYSICAL EXAM: Temperature 98.3, heart rate 49, respiratory rate 20, pulse ox 96% on room air, and blood pressure 139/55. General: Alert, well-appearing man , who appears older than his stated age, in no distress. He is resting comfortably and has no complaints. HEENT: Pupils are equal, round, and reactive to light. Oral mucosa is moist. Neck: No JVP. No adenopathy. Chest : He is bradycardic with no murmurs. He has an old healed sternotomy incision. His lungs are clear bilaterally. Abdomen: Soft, nontender, nondistended. No guarding or rebound. Extremities: No edema, rashes, or ulcers. HOSPITAL COURSE: 1. NSTEMI. Mr. Nicole presented to the emergency department after an episode of chest pain, shortness of breath, and staring spell at his job at [employer]. 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 In the emergency department, his initial EKG showed T-wave inversions in V3 through V6 and in II, III, and aVF. He was found to have an initial troponin of 0.16, so he was started on a heparin drip and treated with aspirin, Plavix, beta-sebastián, and statin. Cardiology was consulted and agreed with the diagnosis of an NSTEMI and recommended a left heart catheterization. His troponin peaked at 4.44. He underwent a diagnostic left heart cath by Dr. Pan and an interventional cath by Dr. Moseley on 01/04/19. A circumflex stent was placed at that time via the right femoral artery. His postop course was uncomplicated. He has not had any further chest pain, arrhythmias, or events. He had recently run out of all of his medications due to an insurance lapse. This has been resolved prior to discharge and Social Work has verified his insurance coverage. He is being discharged on aspirin, Plavix, statin, KANIAK inhibitor, and his bradycardia has precluded the use of a beta-sebastián. At the time of this dictation, I am waiting to hear back from the cardiology office about a followup appointment. 2. Acute systolic heart failure. An echocardiogram obtained on 01/03/19 showed EF of 35% to 40% with hypokinesis of the apical myocardium and hypokinesis of the mid apical anteroseptal myocardium. This was thought to be an ischemic cardiomyopathy related to his acute event, and he will need close cardiology followup to evaluate for recovery of his ejection fraction. Euvolemic at the time of discharge. 3. History of coronary artery disease, status post CABG. 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 4. Type 2 diabetes. He was resumed on his prior diabetes medications. 5. Hypertension. He was resumed on his antihypertensives. 6. Bradycardia. Sinus bradycardia was noted and precluded the use of a beta- sebastián. CONDITION AT THE TIME OF DISCHARGE: Stable. DISPOSITION: Mr. Nicole is being discharged to home on 01/06/19. He understands the reasons to return to the hospital including recurrent chest pain , shortness of breath, or any other new symptoms and discharge instructions including care of the groin site have been included for him. ADDENDUM TO DISCHARGE SUMMARY: DATE OF ADMISSION: 01/03/2019. DATE OF DISCHARGE: 01/06/2019. HOSPITAL COURSE: 7. Anemia: Mr. Nicole was incidentally noted to have mild anemia on this admission. His admission hemoglobin was 13.4 and his discharge hemoglobin is 12.5. He said he has had a colonoscopy, but is not sure how long ago it was. I encouraged him to follow-up with his primary care physician to schedule a diagnostic colonoscopy. He understands and agrees to do so. [id number]/[facility] #: [id number]/[facility] #: [id number] [facility]
--- NOTE | 2019-01-06 15:25 | DS ---
ADDENDUM TO DISCHARGE SUMMARY DATE OF ADMISSION: 01/03/2019. DATE OF DISCHARGE: 01/06/2019. HOSPITAL COURSE: 7. Anemia: Mr. Nicole was incidentally noted to have mild anemia on this admission. His admission h emoglobin was 13.4 and his discharge hemoglobin is 12.5. He said he has had a colonoscopy, but is not sure how long ago it was. I encouraged him to follow-up with his primary care physician to schedule a diagnostic colonoscopy. He understands and agrees to do so. [id number]/[facility] #: [id number]
[2019-01-06 16:01] VITALS: BP 119/51
== END 2019-01-06 16:20 | disposition home or self-care (01) | DRG 174 ==
LOC: ED 12:39 → ICU 14:42 → MEDTELE 01-05 18:04
PROVIDERS: ADMIT Internal Medicine; ATTEND Internal Medicine
PROC: B2121ZZ Fluoroscopy of Single Coronary Artery Bypass Graft using Low Osmolar Contrast (ICD-10-PCS; 2019-01-04)
PROC: B2111ZZ Fluoroscopy of Multiple Coronary Arteries using Low Osmolar Contrast (ICD-10-PCS; 2019-01-04)
PROC: 027034Z Dilation of Coronary Artery, One Artery with Drug-eluting Intraluminal Device, Percutaneous Approach (ICD-10-PCS; principal; 2019-01-04 08:30)
PROC: 4A033BC Measurement of Arterial Pressure, Coronary, Percutaneous Approach (ICD-10-PCS; 2019-01-04 08:30)
DX: I21.4 Non-ST elevation (NSTEMI) myocardial infarction (principal); I50.21 Acute systolic (congestive) heart failure; I25.810 Atherosclerosis of coronary artery bypass graft(s) without angina pectoris; E11.9 Type 2 diabetes mellitus without complications; I25.10 Atherosclerotic heart disease of native coronary artery without angina pectoris; E78.00 Pure hypercholesterolemia, unspecified; E78.5 Hyperlipidemia, unspecified; K21.9 Gastro-esophageal reflux disease without esophagitis; F17.210 Nicotine dependence, cigarettes, uncomplicated; I11.0 Hypertensive heart disease with heart failure; R00.1 Bradycardia, unspecified; I25.5 Ischemic cardiomyopathy; D64.9 Anemia, unspecified; E66.3 Overweight; I25.2 Old myocardial infarction; Z95.1 Presence of aortocoronary bypass graft; Z95.5 Presence of coronary angioplasty implant and graft; Z72.89 Other problems related to lifestyle; Z68.29 Body mass index [BMI] 29.0-29.9, adult; Z79.84 Long term (current) use of oral hypoglycemic drugs; Z79.82 Long term (current) use of aspirin; Z79.02 Long term (current) use of antithrombotics/antiplatelets; Z91.14 Patient's other noncompliance with medication regimen
CPT/HCPCS: 36415; 71045; 80048; 80053; 80061; 82947; 83036; 83605; 84132; 84484; 85025; 85347; 85730; 87641; 90686; 93005; 93306; 93455; 99156; 99157; 99285; A9270-GY; C1725; C1760; C1876; C1887; C8929; C9600-LC; J0153; J1644; J2250; J3010